=== PATIENT | male | born 1955 | race Caucasian/White ===

== ENCOUNTER → 2016-11-15 | Outpatient (CLI) | payer OTHER ==
[~2016-11-15] MED LIST: AMLO5TAB2 PO; ANDR1.62 TOPICAL; ANDR1GEL TD; ASPI1TAB69 PO; ASPI81TA82 PO; ATEN-102 PO; ATEN50TA PO; DETR2TAB PO; FENO160T PO; FENO160T2 PO; LEVO175T2 PO; LISI-363 PO; LISI-515 PO; PANT40TA3 PO; PROT40TA PO; TAMS0.4C4 PO
--- NOTE | 2016-11-15 11:40 | RADRPT ---
EXAM DATE/TIME: 11/15/2016 11:29 [place] COMPARISON: No previous studies available for comparison. INDICATIONS : Evaluate for pneumonia, pneumothorax, or communicable disease. Pre op for shoulder rotator cuff surg kesha. MEDICAL HISTORY : None. SURGICAL HISTORY : None. ENCOUNTER: Initial ACUITY: 1 day PAIN SCORE: 0/10 LOCATION: Bilateral chest FINDINGS: PA and lateral views of the chest demonstrate the lungs to be symmetrically aerated without evidence of mass, infiltrate or effusion. The cardiomediastinal contours are unremarkable. Osseous structure s demonstrate mild degenerative changes in the thoracic spine but are otherwise intact. CONCLUSION: 1. No acute cardiopulmonary findings identified. Harsha Kan MD on November 15, 2016 at 11:38 Board Certified Radiologist. This report was verified electronically.
[2016-11-15 11:41] LABS: BLOOD, URINE NEG (NEG); GLUCOSE,URINE NEG (NEG); KETONE, URINE NEG (NEG); MUCUS URINE FEW /lpf (OCC); NITRITE,URINE NEG (NEG); PH, URINE 5.5 (5.0-8.5); SQUAMOUS EPITHELIAL CELL URINE <1 /hpf (0-5); URINE COLOR YELLOW (YELLW/STRAW)
[2016-11-15 11:43] LABS: COMMENT (UR) CULT NOT INDICATED; CULTURE IF INDICATED CULT NOT INDICATED
[2016-11-15 11:47] LABS: PROTHROMBIN TIME - PATIENT 10.7 SEC (9.8-11.6)
[2016-11-15 12:01] LABS: BICARBONATE 25.6 MEQ/L (21.0-32.0); POTASSIUM 4.2 MEQ/L (3.5-5.1)
--- NOTE | 2016-11-16 11:29 | EKG ---
Date Performed: 11/15/2016 Time Performed: 10:47:44 PTAGE: 61 years EKG: SINUS BRADYCARDIA WITH OCCASIONAL VENTRICULAR PREMATURE COMPLEXES RIGHT BUNDLE BRANCH BLOCK ABNORMAL ECG NO PREVIOUS TRACING DOCTOR: Jose Juan Ocampo Interpretating Date/Time 11/16/2016 11:28:06
== END ==
LOC: CPRE 10:18
PROVIDERS: ATTEND Orthopaedic Surgery
DX: Z01.810 Encounter for preprocedural cardiovascular examination (principal); Z01.812 Encounter for preprocedural laboratory examination; R00.1 Bradycardia, unspecified; I45.10 Unspecified right bundle-branch block
CPT/HCPCS: 36415; 71020; 80048; 81001; 85610; 93005

== ENCOUNTER 2016-11-24 17:20 | Emergency (ER) | payer OTHER ==
[~2016-11-24] VITALS: Ht 177.8 cm; Wt 95.0 kg
[~2016-11-24 17:20] MED LIST changes: -ACETAMINOPHEN/HYDROcodone 325 MG/5 MG TAB PO PRN; -DEXAMETHASONE SOD PHOS 4 MG/ML VIAL ONE; -FAMOTIDINE 20 MG/2 ML VIAL ONE; -INSULIN HUMAN REGULAR 1,000 UNITS/10 ML VIAL SQ PRN; -LACTATED RINGER'S 1000 ML INJ 1,000 ML IV ONE; -LACTATED RINGER'S 1000 ML IV SCH; -METOPROLOL TARTRATE 25 MG TAB PO PRN; -MIDAZOLAM HCL 2 MG/2 ML VIAL ONE; -MORPHINE SULFATE 10 MG/ML INJ IM PRN; -NEOSTIGMINE 3 MG/3 ML SYR IV ONE; -ONDANSETRON HCL 4 MG/2 ML VIAL IV PUSH ONE; -POVIDONE IODINE 7.5% SCRUB 118 ML BOTTLE TOP SCH; -PROMETHAZINE INJ 25 MG/ML VIAL IM PRN; -PROPOFOL 200 MG/20 ML AMP IV ONE; -ROPIVACAINE 0.5% PF INJ 30 ML VIAL NB ONE; -SODIUM CHLORID 0.9% 500 ML IV SCH; -ceFAZolin 2 GM PREMIX 50 ML IV SCH; -ceFAZolin INJ 1,000 MG VIAL ONE; -ePHEDrine/NS 25 MG/5 ML SYR IV ONE; -fentaNYL CITRATE 250 MCG/5 ML AMP ONE
[2016-11-24 17:22] VITALS: BP 142/74; PULSE 77; RESP 16; TEMP 98.2; O2SAT 98
--- NOTE | 2016-11-24 17:45 | PD ---
HPI . urinary retention since surgery this morning Chief Complaint: Complaint Time Seen by Provider: 17:44 Travel History International Travel<30 days: No Contact w/Intl Traveler<30days: No Traveled to known affect area: No History of Present Illness HPI 61-year-old male with hypertension, low testosterone, GERD, hyperlipidemia and BPH here with complaints of urinary retention since surgery this morning. Apparently patient had his left rotator cuff repaired this morning. He was discharged from the OR approximately 10:50 AM. Patient says since then he has only passed about 6 drops of urine, despite drinking 2 cans of tree charisse and water. He has the urgency to void, however when he goes to the bathroom nothing is coming out. He reports some abdominal discomfort, but denies any pain and cannot report a number on a pain scale. He denies any other symptoms. He is accompanied by his significant other Annie. [facility] Past Medical History Cancer: No Cardiovascular Problems: No Diabetes: No Endocrine: No Genitourinary: No Hepatitis: No Hiatal Hernia: No Immune Disorder: No Musculoskeletal: No Neurologic: No Psychiatric: No Reproductive: No Respiratory: No Thyroid Disease: Yes Past Surgical History Abdominal Surgery: Yes ([facility]) AICD: No Body Medical Devices: mesh from hernia surgery Cardiac Surgery: No Ear Surgery: No Endocrine Surgery: No Eye Surgery: No Genitourinary Surgery: No Gynecologic Surgery: No Joint Replacement: No Oral Surgery: Yes (SINUS SX,T&A UVULA SX) Pacemaker: No Thoracic Surgery: No Social History Tobacco Use: No Substance Use: No Allergies-Medications (Allergen,Severity, Reaction): Coded Allergies: Codeine (Unverified Allergy, Severe, Nausea/Vomiting, 11/24/16) Reported Meds & Prescriptions Reported Meds & Active Scripts Active Reported Aspirin 81 Mg Tabdr 81 Mg PO DAILY Amlodipine (Amlodipine Besylate) 5 Mg Tab 5 Mg PO DAILY Tamsulosin (Tamsulosin HCl) 0.4 Mg Cap 0.4 Mg PO HS Atenolol 50 Mg Tab 50 Mg PO DAILY Lisinopril 20 Mg Tab 20 Mg PO DAILY Fenofibrate 160 Mg Tab 160 Mg PO DAILY Pantoprazole (Pantoprazole Sodium) 40 Mg Tab 40 Mg PO DAILY Levothyroxine (Levothyroxine Sodium) 175 Mcg Tab 175 Mcg PO DAILY Androgel Pump Topical (Testosterone) 1.62 % Gel 20.25 Mg TOPICAL DAILY Review of Systems General / Constitutional: No: Fever Eyes: No: Visual changes HENT: No: Headaches Cardiovascular: No: Chest Pain or Discomfort Respiratory: No: Shortness of Breath Gastrointestinal: No: Abdominal Pain Genitourinary: Positive: Hesitancy (retention), No: Dysuria Musculoskeletal: No: Pain Skin: No Rash Neurologic: No: Weakness Psychiatric: No: Depression Endocrine: No: Polydipsia Hematologic/Lymphatic: No: Easy Bruising Physical Exam Narrative GENERAL: AAO x 3, no acute distress, Well-nourished, well-developed patient. SKIN: Warm and dry. No visible rashes or bruising. HEAD: Normocephalic and atraumatic. EYES: No scleral icterus. No injection or drainage. EOM intact, PERRLA ENT: No nasal drainage noted. Mucous membranes pink. Airway patent. NECK: Supple, trachea midline. No JVD. CARDIOVASCULAR: Regular rate and rhythm without murmurs, gallops, or rubs. RESPIRATORY: Breath sounds equal bilaterally. No accessory muscle use. No rhonchi or rales. GASTROINTESTINAL: Abdomen soft, non-tender. Mild lower abdominal distention. Pressure with palpation, but no pain. EXTREMITIES: No cyanosis or edema. BACK: Nontender without obvious deformity. No CVA tenderness. PSYCH: AAO x 3, normal affect. Data Data Last Documented VS Vital Signs Date Time Temp Pulse Resp B/P Pulse Ox O2 Delivery O2 Flow Rate FiO2 11/24/16 17:22 98.2 77 16 142/74 98 Orders Urinary Catheter Insert/Apply (11/24/16 18:00) Urinalysis - C+S If Indicated (11/24/16 18:16) [facility] Medical Decision Making Medical Screen Exam Complete: Yes Emergency Medical Condition: Yes Medical Record Reviewed: Yes Differential Diagnosis urinary retention s/p surgery due to anesthesia, less likely acute renal failure , less likely nephrolithiasis Narrative Course 61-year-old male with hypertension, low testosterone, GERD, hyperlipidemia and BPH here with complaints of urinary retention since surgery this morning. Apparently patient had his left rotator cuff repaired this morning. He was discharged from the OR approximately 10:50 AM. Patient says since then he has only passed about 6 drops of urine, despite drinking 2 cans of tree charisse and water. He has the urgency to void, however when he goes to the bathroom nothing is coming out. He reports some abdominal discomfort, but denies any pain and cannot report a number on a pain scale. He denies any other symptoms. He is accompanied by his significant other Annie. 1100 cc of urine (clear) Advised f/u with PCP next week to remove bag (Dr. Alfonso) advised if any issues to return to ED. Patient verbalized understanding of instructions, questions were answered, and thanked me for their care. I advised them if their condition worsens, please return to the nearest emergency room for further care. Diagnosis Primary Impression: Acute urinary retention Patient Instructions: General Instructions, Urinary Retention in Men (ED) Additional Instructions: Please return to emergency department if your symptoms return or worsen. Follow up with your primary care provider. We are sending you home with a leg bag catheter in place. As we discussed a few develop any sudden onset of abdominal pain, fever or chills please return to the nearest emergency room. Med/Other Pt SpecificInfo: No Change to Meds Disposition: 01 DISCHARGE HOME Condition: Stable Cynthia Ellis Nov 24, 2016 17:45
[2016-11-24 18:52] LABS: BACTERIA, URINE RARE /hpf; BLOOD, URINE NEG (NEG); GLUCOSE,URINE NEG (NEG); HYALINE CAST, URINE 4 /lpf (RARE); KETONE, URINE NEG (NEG); NITRITE,URINE NEG (NEG); URINE COLOR YELLOW (YELLW/STRAW)
[2016-11-24 18:56] LABS: COMMENT (UR) CATH-CULTURE IND; CULTURE IF INDICATED CATH CULTURE IND
== END 2016-11-24 19:16 | disposition home or self-care (01) ==
LOC: NEPC 17:20
DX: R33.9 Retention of urine, unspecified (principal); N99.89 Other postprocedural complications and disorders of genitourinary system; I10 Essential (primary) hypertension; K21.9 Gastro-esophageal reflux disease without esophagitis; E78.5 Hyperlipidemia, unspecified
CPT/HCPCS: 51702; 81001; 87086

== ENCOUNTER → 2016-11-24 | Day surgery (SDC) | payer OTHER ==
[~2016-11-24] VITALS: Ht 177.8 cm; Wt 95.2 kg
[~2016-11-24] MED LIST changes: +ACETAMINOPHEN/HYDROcodone 325 MG/5 MG TAB PO PRN; -ANDR1GEL TD; -ASPI81TA82 PO; -ATEN-102 PO; -DETR2TAB PO; +DEXAMETHASONE SOD PHOS 4 MG/ML VIAL ONE; +FAMOTIDINE 20 MG/2 ML VIAL ONE; -FENO160T2 PO; +INSULIN HUMAN REGULAR 1,000 UNITS/10 ML VIAL SQ PRN; +LACTATED RINGER'S 1000 ML INJ 1,000 ML IV ONE; +LACTATED RINGER'S 1000 ML IV SCH; -LISI-363 PO; +METOPROLOL TARTRATE 25 MG TAB PO PRN; +MIDAZOLAM HCL 2 MG/2 ML VIAL ONE; +MORPHINE SULFATE 10 MG/ML INJ IM PRN; +NEOSTIGMINE 3 MG/3 ML SYR IV ONE; +ONDANSETRON HCL 4 MG/2 ML VIAL IV PUSH ONE; +POVIDONE IODINE 7.5% SCRUB 118 ML BOTTLE TOP SCH; +PROMETHAZINE INJ 25 MG/ML VIAL IM PRN; +PROPOFOL 200 MG/20 ML AMP IV ONE; -PROT40TA PO; +ROPIVACAINE 0.5% PF INJ 30 ML VIAL NB ONE; +SODIUM CHLORID 0.9% 500 ML IV SCH; +ceFAZolin 2 GM PREMIX 50 ML IV SCH; +ceFAZolin INJ 1,000 MG VIAL ONE; +ePHEDrine/NS 25 MG/5 ML SYR IV ONE; +fentaNYL CITRATE 250 MCG/5 ML AMP ONE
[2016-11-24 06:51] VITALS: BP 129/83; PULSE 53; RESP 18; TEMP 97.9; O2SAT 98
[2016-11-24 11:35] VITALS: BP 122/64; PULSE 60; RESP 16; TEMP 86.9; O2SAT 94
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
--- NOTE | 2016-11-25 07:42 | MP ---
cc: HOSSEIN LIRA M.D. DATE OF SURGERY: 11/24/2016 PREOPERATIVE DIAGNOSIS: Complete rotator cuff tear left shoulder, acromioclavicular arthrosis left shoulder, effusion left shoulder, pain left shoulder. POSTOPERATIVE DIAGNOSIS Complete rotator cuff tear left shoulder, acromioclavicular arthrosis left shoulder, effusion left shoulder, pain left shoulder. PROCEDURE: Acromioplasty of the left shoulder with mini open rotator cuff repair. SURGEON Annia ANESTHESIA General endotracheal. FORMAT: Following induction of satisfactory general anesthesia by endotracheal intubation as completed per the Department of Anesthesia the patient was positioned upon the operating table in a modified beach-chair configuration. The left shoulder and upper extremity proper were isolated with a U drape thereafter being prepped with Betadine solution and draped into a sterile field in the routine manner. Prior to initiation of the actual procedure the standard time-out protocol was completed all parameters were appropriately addressed and confirmed by operating room personnel. A sharp skin incision was initiated with a superior aspect of the shoulder along the palpable margin of the lateral aspect of the acromion and developed underlying subcutaneous tissue with hemostasis maintained by electrocautery. By deepening dissection the underlying deltoid musculature was exposed along its anterior raphe. The deltoid was divided in a medial to lateral orientation facilitating entry into the subacromial space. Examination revealed proliferative synovium throughout with a vertical tear of the underlying tendon structure being appreciated. There was some degree of hypertrophy of the anterior margin of the acromion that was consistent with an impingement type process. An oblique osteotomy was accomplished involving the anterior inferior margin of the acromion. The undersurface of which was contoured with bone rasp. Visual and digital inspection confirmed adequate decompression within the confines of the subacromial space. The margins of the tendon disruption were sharply debrided and thereafter utilizing interrupted 0 polytec suture. A primary repair was accomplished. The shoulder was thereafter carried through a passive range of motion, stability of the rotator cuff was appreciated with no evidence of impingement. The wound was copiously irrigated with saline solution. Hemostasis maintained by electrocautery. The deltoid was thereafter repaired with interrupted zero Polytec suture. The remaining portion of the wound was closed in layers in the routine manner. Skin margins being reapproximated with a running subcuticular 3-0 Vicryl suture over which Steri-Strips were applied. Xeroform gauze and a bulky dry sterile dressing placed. The extremity being supported in an arm sling. Anesthesia was discontinued. He was thereafter transferred to a hospital stretcher and returned to recovery room in satisfactory condition having tolerates operative procedure well. Estimated blood loss was less than 25 cc. MD JULIO Lewis/fred /10:29 AM /7:27 AM
== END | disposition home or self-care (01) ==
LOC: HSDC 05:51
PROVIDERS: ATTEND Orthopaedic Surgery
DX: M75.122 Complete rotator cuff tear or rupture of left shoulder, not specified as traumatic (principal); M19.012 Primary osteoarthritis, left shoulder; M25.412 Effusion, left shoulder; M25.512 Pain in left shoulder
CPT/HCPCS: 01630; 23420; 64415; J0690; J1100; J2250; J2405; J2710; J3010; J7120; J2795

== ENCOUNTER 2017-06-01 18:42 | Emergency (ER) | payer OTHER ==
[~2017-06-01] VITALS: Ht 175.3 cm; Wt 95.2 kg
[2017-06-01 18:54] VITALS: BP 140/78; PULSE 61; RESP 16; TEMP 98.8; O2SAT 98
--- NOTE | 2017-06-01 19:22 | PD ---
HPI Chief Complaint: Complaint Time Seen by Provider: 19:13 Travel History International Travel<30 days: No Contact w/Intl Traveler<30days: No Traveled to known affect area: No History of Present Illness HPI The patient is a 61-year-old male that had general anesthesia this morning for a biceps tendon repair. In November he had general anesthesia and he had bladder atony afterwards. He states he has not been able to urinate since 7 AM this morning. He denies any fever, dysuria, penile discharge or flank pain. He has Percocet 5 at home but he is afraid of the nausea side effects with this medication. PFSH Past Medical History Cancer: No Cardiovascular Problems: No Diabetes: No Diminished Hearing: No Endocrine: No Genitourinary: No Hepatitis: No Hiatal Hernia: No Hypertension: Yes Immune Disorder: No Musculoskeletal: Yes (L ROTATOR TEAR, L SHOULDER EFFUSION , ACROMIOCLAVICULAR ARTHROSIS ) Neurologic: No Psychiatric: No Reproductive: No Respiratory: No Thyroid Disease: Yes (HYPOTHYROIDISM ) Past Surgical History Abdominal Surgery: Yes ([facility]) AICD: No Body Medical Devices: mesh from hernia surgery Cardiac Surgery: No Ear Surgery: No Endocrine Surgery: No Eye Surgery: No Genitourinary Surgery: No Gynecologic Surgery: No Joint Replacement: Yes (L ROTATOR REPAIR 11/23/2016) Oral Surgery: Yes (SINUS SX,T&A UVULA SX) Pacemaker: No Thoracic Surgery: No Tonsillectomy: Yes Other Surgery: Yes (DEVIATED NASAL SEPTUM REPAIR) Social History Alcohol Use: Yes Tobacco Use: No Substance Use: No Allergies-Medications (Allergen,Severity, Reaction): Coded Allergies: codeine (Unverified Allergy, Severe, Nausea/Vomiting, 06/01/17) Reported Meds & Prescriptions Reported Meds & Active Scripts Active Reported Aspirin 81 Mg Tabdr 81 Mg PO DAILY Amlodipine (Amlodipine Besylate) 5 Mg Tab 5 Mg PO DAILY Tamsulosin (Tamsulosin HCl) 0.4 Mg Cap 0.4 Mg PO HS Atenolol 50 Mg Tab 50 Mg PO DAILY Lisinopril 20 Mg Tab 20 Mg PO DAILY Fenofibrate 160 Mg Tab 160 Mg PO DAILY Pantoprazole (Pantoprazole Sodium) 40 Mg Tab 40 Mg PO DAILY Levothyroxine (Levothyroxine Sodium) 175 Mcg Tab 175 Mcg PO DAILY Androgel Pump Topical (Testosterone) 1.62 % Gel 20.25 Mg TOPICAL DAILY Review of Systems Except as stated in HPI: all other systems reviewed are Neg Physical Exam Narrative GENERAL: The patient is alert, oriented 3 in moderate apparent distress with his bladder distention. His vital signs are normal. SKIN: Focused skin assessment warm/dry. HEAD: Atraumatic. Normocephalic. EYES: Pupils equal and round. No scleral icterus. No injection or drainage. ENT: No nasal bleeding or discharge. Mucous membranes pink and moist. NECK: Trachea midline. No JVD. CARDIOVASCULAR: Regular rate and rhythm. No murmur appreciated. RESPIRATORY: No accessory muscle use. Clear to auscultation. Breath sounds equal bilaterally. GASTROINTESTINAL: Abdomen soft, non-tender, nondistended. Hepatic and splenic margins not palpable. The bladder is slightly distended. MUSCULOSKELETAL: No obvious deformities. No clubbing. No cyanosis. No edema. NEUROLOGICAL: Awake and alert. No obvious cranial nerve deficits. Motor grossly within normal limits. Normal speech. PSYCHIATRIC: Appropriate mood and affect; insight and judgment normal. Data Data Last Documented VS Vital Signs Date Time Temp Pulse Resp B/P (MAP) Pulse Ox O2 Delivery O2 Flow Rate FiO2 06/01/17 18:54 98.8 61 16 140/78 (98) 98 MDM Medical Decision Making Medical Screen Exam Complete: Yes Emergency Medical Condition: Yes Medical Record Reviewed: Yes Interpretation(s) 350 cc were present in the bladder at time of catheterization Differential Diagnosis Bladder atony from anesthesia, prostatic urethral obstruction, urinary tract infection, renal insufficiency Narrative Course The patient has bladder atony from anesthesia. This is his second episode of this. He is likely the face this again with general anesthesia. Plan: The patient will have a Mccurdy catheter left in until he feels that his bladder can contract normally again. This is likely to occur within 24 hours. Diagnosis Primary Impression: Acute urinary retention Additional Impression: Bladder atony Additional Instructions: As we discussed, you can take the catheter out when you feel that your bladder is working again. As you know, you are likely the face this again with general anesthesia. Disposition: 01 DISCHARGE HOME Condition: Stable Sincere Rodriguez MD Jun 01, 2017 19:22
[2017-06-01 19:48] VITALS: BP 138/72
== END 2017-06-01 20:03 | disposition home or self-care (01) ==
LOC: PHED 18:42
DX: R33.9 Retention of urine, unspecified (principal); N31.2 Flaccid neuropathic bladder, not elsewhere classified; I10 Essential (primary) hypertension; E03.9 Hypothyroidism, unspecified; Z98.890 Other specified postprocedural states; Z87.39 Personal history of other diseases of the musculoskeletal system and connective tissue
CPT/HCPCS: 51702